=== PATIENT | male | born 1990 | race Caucasian/White ===

== ENCOUNTER → 2023-07-14 | Outpatient (REF) | payer OTHER | LOC: M PLAIMG 11:46 → EDSTATUS 07-24 17:19 | PROVIDERS: ATTEND Nurse Practitioner Family | DX: M25.511 Pain in right shoulder (principal); M54.50 Low back pain, unspecified; M54.6 Pain in thoracic spine; M25.571 Pain in right ankle and joints of right foot; M25.572 Pain in left ankle and joints of left foot; R07.9 Chest pain, unspecified; M19.011 Primary osteoarthritis, right shoulder; M19.012 Primary osteoarthritis, left shoulder ==